=== PATIENT | male | born 1960 | race Caucasian/White ===

== ENCOUNTER → 2020-07-09 | Outpatient (CLI) | payer BC ==
[~2020-07-09] MED LIST: ASPIRIN EC81 MG PO; ATORVASTATIN CA20 MG PO; BRILINTA 90 MG90 MG PO; METOPROLOL SUCC50 MG PO; NITROSTAT 0.40.4 MG SL
[2020-07-09 08:14] LABS: BUN/CREATININE RATIO 24 (0-10)
== END ==
LOC: LAB 06:57
PROVIDERS: Physician Assistant Surgical
DX: I10 Essential (primary) hypertension (principal)
CPT/HCPCS: 36415; 80053; 80061

== ENCOUNTER 2020-08-12 12:38 | Emergency (ER) | payer BC | END 2020-08-12 14:18 | disposition left against medical advice (07) | LOC: ER1 12:38 | DX: H57.89 Other specified disorders of eye and adnexa (principal); E78.5 Hyperlipidemia, unspecified | CPT/HCPCS: 99283 ==

== ENCOUNTER → 2021-02-04 | Outpatient (CLI) | payer BC | LOC: LAB 10:30 | DX: I10 Essential (primary) hypertension (principal) | CPT/HCPCS: 36415; 80061; 80076 ==

== ENCOUNTER 2021-09-21 23:37 | Emergency (ER) | payer BC ==
[2021-09-22] MEDS ORDERED: POLYTRIM EYE DR10 ML EYERT (01:44)
== END 2021-09-22 01:52 | disposition home or self-care (01) ==
LOC: ER1 23:37
DX: T15.91XA Foreign body on external eye, part unspecified, right eye, initial encounter (principal); E78.5 Hyperlipidemia, unspecified; X58.XXXA Exposure to other specified factors, initial encounter
CPT/HCPCS: 65205; 99283